=== PATIENT | female | born 1980 | race Caucasian/White ===

== ENCOUNTER 2017-05-17 09:46 | Emergency (ER) | payer OTHER ==
[2017-05-17 10:16] VITALS: RESP 16; O2SAT 99
--- NOTE | 2017-05-17 10:24 | ED PDOC ---
Upper Extremity Pain/Injury Time Seen by Provider: 05/17/17 10:17 Chief Complaint (Nursing): Upper Extremity Problem/Injury History Per: Patient Onset/Duration Of Symptoms: Days (2) Current Symptoms Are (Timing): Still Present Severity: Moderate Pain Scale Rating Of: 5 Exacerbating Factor(s): Movement Additional Complaint(s): Injected with steroids left MCP yesterday by PMD for RA. Had pain before injection but pain is worse assoc with swelling at injection site. Denies fever. Past Medical History Vital Signs: Last Vital Signs Temp 98 F 05/17/17 10:13 Pulse 71 05/17/17 10:13 Resp 16 05/17/17 10:13 BP 112/69 05/17/17 10:13 Pulse Ox 99 05/17/17 10:13 - Medical History PMH: Arthritis - Surgical History Surgical History: - Family History Family History: States: Unknown Family Hx - Home Medications Home Medications: Ambulatory Orders Medication Instructions Recorded Clindamycin [Cleocin] 300 mg PO Q8 #30 cap 05/17/17 Diclofenac [Diclofenac] PO DAILY 05/17/17 Prednisone [Eldon] 05/17/17 traMADol [Ultram] 50 mg PO Q8 #10 tab 05/17/17 - Allergies Allergies/Adverse Reactions: Allergies Allergy/AdvReac Type Severity Reaction Status Date / Time No Known Allergies Allergy Verified 12/25/15 23:13 Review of Systems Constitutional: Negative for: Fever Musculoskeletal: Positive for: Other (Left hand pain and swelling) Physical Exam - Physical Exam Appears: Positive for: Non-toxic, No Acute Distress Skin: Positive for: Normal Color, Warm, DRY Extremity: Positive for: Other (Left hand dorsal surface with swelling to 5th MCP area with mild surrounding erythema. No fluctuance or drainage. No streaking or swelling proximally.) - Laboratory Results Result Diagrams: 05/17/17 10:28 05/17/17 10:28 - ECG O2 Sat by Pulse Oximetry: 99 Medical Decision Making Medical Decision Making: Discussed with Hand Dr. Subramanian. Can go home on PO antibiotics and be followed as outpt. If no improvement return to ED or see hand. Disposition - Clinical Impression Clinical Impression: Cellulitis - Patient ED Disposition Is Patient to be Admitted: No Counseled Patient/Family Regarding: Studies Performed, Diagnosis, Need For Followup, Rx Given - Disposition Referrals: Daniel Subramanian MD [Medical Doctor] - Disposition: Routine/Home Disposition Time: 12:55 Condition: FAIR Prescriptions: Clindamycin [Cleocin] 300 mg PO Q8 #30 cap traMADol [Ultram] 50 mg PO Q8 #10 tab Instructions: Cellulitis (Skin Infection), Adult (DC) Forms: [employer] (Yakut)
[2017-05-17 10:40] LABS: BASO # 0.1 K/uL (0.0-0.2); BASO % 0.3 % (0.0-2.0); EOS % 0.1 % (0.0-4.0); LYMPH # 1.2 K/uL (1.0-4.3); LYMPH % 6.9 % (20.0-40.0); MEAN CELL VOLUME 82.6 fl (81.0-99.0); MEAN CORPUSCULAR HEMOGLOBIN 26.9 pg (27.0-31.0); MEAN CORPUSCULAR HGB CONC 32.6 g/dL (33.0-37.0); MEAN PLATELET VOLUME 9.6 fl (7.2-11.7); MONO # 0.8 K/uL (0.0-0.8); MONO % 4.4 % (0.0-10.0); NEUT # 15.1 K/uL (1.8-7.0); NEUT % 88.3 % (50.0-75.0); NRBC % 0.1 % (0.0-0.0); PLATELET COUNT 272 K/uL (130-400); RBC 5.19 Mil/uL (3.80-5.20); RED CELL DISTRIBUTION WIDTH 13.7 % (11.5-14.5); WHITE BLOOD COUNT 17.1 K/uL (4.8-10.8)
[2017-05-17 10:59] LABS: ALB/GLOB RATIO 1.3 (1.0-2.1); ALBUMIN 4.7 g/dL (3.5-5.0); ALT/SGPT 30 U/L (9-52); AST/SGOT 24 U/L (14-36); BLOOD UREA NITROGEN 10 mg/dl (7-17); GFR AFRICAN-AMERICAN > 60; GFR NON-AFRICAN AMERICAN > 60
[2017-05-17 11:25] LABS: LYMPHOCYTE 11 % (20-50); MONOCYTE 6 % (0-10); NEUTROPHIL 83 % (42-75); PLATELET ESTIMATE NORMAL (NORMAL); TOTAL CELLS COUNTED 100
[2017-05-17 11:26] LABS: ANISOCYTOSIS SLIGHT; LARGE PLATELETS PRESENT; MICROCYTOSIS SLIGHT; TEARDROP CELLS SLIGHT
[2017-05-17] MEDS ORDERED: Clindamycin 600mg/50ml NS 600 MG/50 ML BAG IVPB ONE (11:46)
[2017-05-17 13:03] VITALS: BP 115/80; PULSE 75; TEMP 98.1
--- NOTE | 2017-05-17 13:47 | RAD ---
HISTORY: Intraarticular injection 5th MCP COMPARISON: No prior FINDINGS: BONES: Multiple scattered carpal cystic erosions predominating in the right scaphoid and lunate. . No fracture. JOINTS: Normal. No osteoarthritis. SOFT TISSUE: Normal. OTHER FINDINGS: None . IMPRESSION: No fracture.
== END 2017-05-17 13:04 | disposition home or self-care (01) ==
LOC: H.ER 09:46
DX: L03.114 Cellulitis of left upper limb (principal)
CPT/HCPCS: 73130; 80053; 81025; 85025; 87040; 96365; 96375; 99283; J1885